=== PATIENT | male | born 1960 | race Caucasian/White ===

== ENCOUNTER 2020-11-18 12:09 | Day surgery (SDC) | payer BC ==
[2020-11-18] MEDS ORDERED: Sodium Chloride 0.9(Preservative Free) 10 ML IJ ONE (12:10)
[2020-11-18] MEDS ORDERED: Depo-Medrol 40 MG/ML IM ONE (12:10)
[2020-11-18] MEDS ORDERED: Xylocaine 1% Vial 30 ML PF IJ ONE (12:10)
[2020-11-18] MEDS ORDERED: DIPRIVAN 200 MG/20 ML IV ONE ×2 (13:25→13:41)
--- NOTE | 2020-11-18 15:17 | XRAY ---
34 seconds fluoroscopy time in surgery for lumbar BRIANNA.
--- NOTE | 2020-11-18 15:17 | XRAY ---
Indication: Lumbar BRIANNA. Intraoperative fluoroscopy provided for 34 seconds. Single lateral digital spot image submitted for interpretation demonstrates posterior needle tip projecting just posterior to L4-L5 interspace. Small amount of contrast injected for needle tip placement. Correlate with intraoperative findings/report.
[2020-11-18] MEDS ORDERED: Lactated Ringers 1,000 ML IV ONE (15:33)
== END 2020-11-18 14:11 | disposition home or self-care (01) ==
LOC: SDC-PAIN 12:09
PROVIDERS: ATTEND Psychiatry & Neurology Pain Medicine
DX: M54.16 Radiculopathy, lumbar region (principal); I10 Essential (primary) hypertension; K21.9 Gastro-esophageal reflux disease without esophagitis; M19.90 Unspecified osteoarthritis, unspecified site; Z79.899 Other long term (current) drug therapy
CPT/HCPCS: 62323; 72020; 77003; J1030; J2001; J2704; Q9966

== ENCOUNTER 2021-01-27 15:13 | Day surgery (SDC) | payer BC ==
[2021-01-27] MEDS ORDERED: Depo-Medrol 40 MG/ML IM ONE (15:14)
[2021-01-27] MEDS ORDERED: LIDOCAINE HCL 2% 100 MG/5 ML IJ ONE (15:14)
[2021-01-27] MEDS ORDERED: DIPRIVAN 200 MG/20 ML IV ONE (15:53)
[2021-01-27] MEDS ORDERED: Lactated Ringers 1,000 ML IV ONE (16:44)
--- NOTE | 2021-01-27 19:24 | XRAY ---
Indication: Bilateral L4-S1 MBB. Intraoperative fluoroscopy provided for 12 seconds. Single digital spot image demonstrates posterior needle tips projecting over the expected left and right L4-S1 nerve roots. Correlate with intraoperative findings/report.
--- NOTE | 2021-01-28 10:59 | XRAY ---
12 seconds fluoroscopy time in surgery for bilateral L4-S1 MBB.
== END 2021-01-27 16:45 | disposition home or self-care (01) ==
LOC: SDC-PAIN 15:13
PROVIDERS: ATTEND Psychiatry & Neurology Pain Medicine
DX: M47.816 Spondylosis without myelopathy or radiculopathy, lumbar region (principal); Z79.899 Other long term (current) drug therapy
CPT/HCPCS: 64493; 64494; 72020; 77002; J1030; J2704